=== PATIENT | female | born 1995 | race Caucasian/White ===

== ENCOUNTER 2017-06-06 12:57 | Emergency (ER) | payer OTHER ==
[~2017-06-06] VITALS: Ht 165.1 cm; Wt 61.2 kg
[~2017-06-06 12:57] MED LIST: ADVIL200 M2 PO; DOCUSATE SODIU100 M3 PO; ESCITALOPRAM OX10 MG PO; LIBRAX CAPSULE1 EACH PO; PERCOCET 5-3251 EACH PO; ROXICODONE5 M1 PO
--- NOTE | 2017-06-06 13:20 | ED CARDIAC/CP/PALPITATIONS ---
History of Present Illness General Chief Complaint: Chest Pain Stated Complaint: CHEST PAIN Vital Signs & Intake/Output Vital Signs & Intake/Output Vital Signs Date Time Temp Pulse Resp B/P B/P Pulse O2 O2 Flow FiO2 Mean Ox Delivery Rate 06/06 1315 97.9 98 18 120/78 95 Room Air Allergies Coded Allergies: lansoprazole (UNKNOWN 11/22/16) Reconcile Medications Docusate Sodium 100 MG CAPSULE 100 MG PO BID PRN CONSTIPATION stool softener available over the counter, as needed Escitalopram Oxalate 10 MG TABLET 1 TAB PO DAILY ANXIETY (Reported) Ibuprofen (Advil) 200 MG TABLET 1-3 TAB PO Q6-8P PRN pain control available over the counter. take with food. Librax (Librax Capsule) 5 MG-2.5 MG CAPSULE 1 CAP PO BID SPASMS (Reported) Oxycodone HCl/Acetaminophen (Percocet 5-325 MG Tablet) 5 MG-325 MG TABLET 1-2 TAB PO Q4-6 PRN PRN pain control ok to take tylenol alternatively, but do not combine Triage Note: PT TO ER WITH MOM SENT IN BY PHYSICIAN 1 URGENT CARE TO RULE OUT PE. PT STATES THAT SHE GETS SUDDEN SHARP CHEST PAIN TO RCW UNDER ARM AND RADIATES TO HER BACK AND DOWN HER LEFT ARM CAUSES SORENESS TO ARM. PT STATES THAT SHE IS ON BIRTHCONTROL FOR DECEMBER 2016. PT STATES THAT SHE HAS A HISTORY OF ANXIETY. Past History Travel History Traveled to [place] past 21 day No Medical History Neurological: NONE EENT: OPTIC NEURITIS Cardiovascular: NONE Respiratory: NONE Gastrointestinal: GERD, "STOMACH ISSUES" Hepatic: NONE Renal: NONE Musculoskeletal: BL hip labral tears, sp BL arthroscopic repairs Psychiatric: anxiety Endocrine: NONE Blood Disorders: NONE Cancer(s): NONE History of MRSA: No History of VRE: No History of CDIFF: No Surgical History Surgical History: non-contributory (bl hip arthroscopy) Psychosocial History What is your primary language Kyrgyz Progress Plan of Care: Orders Procedure Date/time Status URINE 06/06 131 Active TROPONIN LEVEL 06/06 1317 Active D-DIMER 06/06 1317 Active COMPREHENSIVE METABOLIC PANEL 06/06 1317 Active CBC WITHOUT DIFFERENTIAL 06/06 131 Active EKG 06/06 1258 Active Departure Departure Condition: Stable Referrals: Ronel Arce MD (PCP/Family) Departure Forms: Customer Survey General Discharge Information
--- NOTE | 2017-06-06 13:26 | ED CARDIAC/CP/PALPITATIONS ---
History of Present Illness General Chief Complaint: Chest Pain Stated Complaint: CHEST PAIN Source: patient, family Exam Limitations: no limitations Vital Signs & Intake/Output Vital Signs & Intake/Output Vital Signs Date Time Temp Pulse Resp B/P B/P Pulse O2 O2 Flow FiO2 Mean Ox Delivery Rate 06/06 1347 Room Air 06/06 1315 97.9 98 18 120/78 95 Room Air Allergies Coded Allergies: lansoprazole (OPTIC NEURITIS 06/06/17) Reconcile Medications Norgestimate-Ethinyl Estradiol (Sprintec 28 Day Tablet) 0.25 MG-35 MCG TABLET 1 TAB PO DAILY CONTROL (Reported) Triage Note: PT TO ER WITH MOM SENT IN BY PHYSICIAN 1 URGENT CARE TO RULE OUT PE. PT STATES THAT SHE GETS SUDDEN SHARP CHEST PAIN TO RCW UNDER ARM AND RADIATES TO HER BACK AND DOWN HER LEFT ARM CAUSES SORENESS TO ARM. PT STATES THAT SHE IS ON BIRTHCONTROL FOR DECEMBER 2016. PT STATES THAT SHE HAS A HISTORY OF ANXIETY. Triage Nurses Notes Reviewed? yes HPI: 22F no PMH presenting with 2 days of worsening fever, chills, cough, malaise, and weakness, went to urgent care and was found to be influenza positive there ( checked early this morning). Also reports intermittent episodes of left sided chest pain radiating down her left arm, last episode was last night, lasted about an hour, not present at this time. Episodes occur every few weeks. They are not associated with palpitations, diaphoresis, SOB, dyspnea. She denies any other symptoms. No family history of sudden cardiac , arrythmias, or congenital heart disease. She does not have exertional pain. SHe does not smoke, but is on OCP. No family history of VTE. Past History Travel History Traveled to [place] past 21 day No Medical History Any Pertinent Medical History? see below for history Neurological: NONE EENT: OPTIC NEURITIS Cardiovascular: NONE Respiratory: NONE Gastrointestinal: GERD, "STOMACH ISSUES" Hepatic: NONE Renal: NONE Musculoskeletal: BL hip labral tears, sp BL arthroscopic repairs Psychiatric: anxiety Endocrine: NONE Blood Disorders: NONE Cancer(s): NONE History of MRSA: No History of VRE: No History of CDIFF: No Surgical History Surgical History: non-contributory (bl hip arthroscopy) Psychosocial History What is your primary language Romanian Family History Hx Contributory? No Review of Systems Review of Systems Constitutional: Reports: no symptoms. EENTM: Reports: no symptoms. Respiratory: Reports: no symptoms. Cardiovascular: Reports: no symptoms. GI: Reports: no symptoms. Genitourinary: Reports: no symptoms. Musculoskeletal: Reports: no symptoms. Skin: Reports: no symptoms. Neurological/Psychological: Reports: no symptoms. Hematologic/Endocrine: Reports: no symptoms. Immunologic/Allergic: Reports: no symptoms. All Other Systems: Reviewed and Negative Physical Exam Physical Exam General Appearance: well developed/nourished, mild distress Head: atraumatic, normal appearance Eyes: Bilateral: normal appearance. Ears, Nose, Throat: hearing grossly normal, pharyngeal erythema Neck: normal inspection, supple, full range of motion Respiratory: normal breath sounds, chest non-tender, no respiratory distress Cardiovascular: regular rate/rhythm Gastrointestinal: soft, non-tender Back: normal inspection, normal range of motion Extremities: normal inspection Neurologic/Psych: awake, alert, oriented x 3, normal mood/affect Skin: intact, normal color, warm/dry Core Measures ACS in differential dx? No CVA/TIA Diagnosis No Sepsis Present: No Sepsis Focused Exam Completed? No Progress Differential Diagnosis: AMI, aortic dissection, atrial fibrillation, cholecystitis, CHF/pulm edema, costochondritis, hyperkalemia, hypovolemia, hyperthyroid, hyperventilation, intracranial hemorrhage, musculoskeletal pain, myocarditis, pancreatitis, pericarditis, pneumonia, pneumothorax, PSVT, pulmonary embolism, PUD/GERD, PVCs/PACs, respiratory failure, rib fracture, sepsis, unstable angina, V-fib/V-Tach, WPW syndrome Plan of Care: Orders Procedure Date/time Status URINE 06/06 131 Complete TROPONIN LEVEL 06/06 131 Complete D-DIMER 06/06 1317 Complete COMPREHENSIVE METABOLIC PANEL 06/06 131 Complete CBC WITHOUT DIFFERENTIAL 06/06 131 Complete EKG 06/06 1258 Active Laboratory Tests 06/06/17 1355: Urine Test NEGATIVE 06/06/17 1330: Anion Gap 11, Estimated GFR > 60, BUN/Creatinine Ratio 14.3, Glucose 89, Calcium 9.7, Total Bilirubin 0.7, AST 18, ALT 18, Alkaline Phosphatase 68, Troponin I < 0.01, Total Protein 8.2, Albumin 4.5, Globulin 3.7, Albumin/Globulin Ratio 1.2, D-Dimer High Sensitivty < 200, CBC w Diff NO MAN DIFF REQ, RBC 4.88, MCV 87.4, MCH 29.1, MCHC 33.2, RDW 13.7, MPV 9.6, Gran % 83.0 H, Lymphocytes % 12.1 L, Monocytes % 4.0, Eosinophils % 0.5, Basophils % 0.4, Absolute Granulocytes 10.7 H, Absolute Lymphocytes 1.6, Absolute Monocytes 0.5, Absolute Eosinophils 0.1, Absolute Basophils 0 D-dimer, EKG, troponin negative. Patient already has Tamiflu prescription. Will discharge home. Initial ED EKG: NSR, no ST T wave changes Prior EKG: unchanged Departure Departure Disposition: HOME OR SELF CARE Condition: Stable Clinical Impression Primary Impression: Influenza A Secondary Impressions: Chest wall pain Referrals: Ronel Arce MD Additional Instructions: Follow up with your PCP. Stay well hydrated. If you have any new or worsening symptoms then return to ER. Departure Forms: Customer Survey General Discharge Information Critical Care Note Critical Care Note Critical Care Time: non-applicable
[2017-06-06] MEDS ORDERED: SPRINTEC 28 DA1 EACH PO (13:47)
[2017-06-06 13:52] LABS: ABSOLUTE BASOPHIL COUNT 0 /CUMM (0.0-0.2); ABSOLUTE EOSINOPHIL COUNT 0.1 /CUMM (0.0-0.7); ABSOLUTE GRANULOCYTE CT 10.7 /CUMM (1.4-6.5); ABSOLUTE LYMPH COUNT 1.6 /CUMM (1.2-3.4); ABSOLUTE MONOCYTE COUNT 0.5 /CUMM (0.10-0.60); BASOPHIL % 0.4 % (0.0-2.0); EOSINOPHIL % 0.5 % (0-5); HEMATOCRIT 42.7 % (37-47); MEAN CORPUSCULAR HGB 29.1 PG (27.0-31.0); MEAN CORPUSCULAR HGB CONC 33.2 G/DL (33.0-37.0); MEAN CORPUSCULAR VOLUME 87.4 FL (81.0-99.0); MEAN PLATELET VOLUME 9.6 FL (7.4-10.4); PLATELET COUNT 199 /CUMM (130-400); RBC DISTRIBUTION WIDTH 13.7 % (11.5-14.5); RED BLOOD CELL CT 4.88 /CUMM (4.20-5.40); WHITE BLOOD CELL COUNT 12.9 /CUMM (4.8-10.8)
[2017-06-06 15:11] VITALS: BP 105/58
== END 2017-06-06 15:21 ==
LOC: ERH 12:57
PROVIDERS: Emergency Medicine
DX: J10.1 Influenza due to other identified influenza virus with other respiratory manifestations (principal); R07.89 Other chest pain
CPT/HCPCS: 81025; 93005; 93010